=== PATIENT | female | born 1960 | race Two or more races ===

== ENCOUNTER 2016-04-20 18:50 | Observation (INO) | payer OTHER ==
[~2016-04-20] VITALS: Ht 162.6 cm; Wt 78.7 kg
--- NOTE | ~2016-04-20 | CO ---
ADMIT: 04/20/2016 RM/LOC: 618 [facility] MR#: [id number] [address] [address] [place] [address] [address] Consultation SEX: F AGE: 55 : 1960 DATE OF CONSULTATION: 04/21/2016 ATTENDING PHYSICIAN: Katie Griffiths CONSULTING PHYSICIAN: Kayla George MD HISTORY OF PRESENT ILLNESS: This is a 55-year-old, G5, P3-1-1-4, who is being admitted for right lower quadrant pain as well as midline pelvic pain and postmenopausal bleeding. The patient indicates that she has had approximately 5-day history of these symptoms. She indicates that it first started with period like vaginal bleeding and low mild midline pelvic pain. Over the last couple days, symptoms have intermittently worsened and lightened up with a couple of days of period like bleeding mixed with spotting. Pelvic pain she describes as mostly low pelvic at first and then has progressively also increased to having right lower quadrant pain as well. The right lower quadrant pain is persistent whereas the midline pelvic pain tends to be more intermittent in nature. PAST MEDICAL HISTORY: Significant for an endometrial ablation in 1997 which was preceded by a tubal ligation after the of her last child. Since that time, she indicates that she really has not had a period. However, she over the past two years, had postcoital spotting with every episode of sex. Endometrial ablation was for menorrhagia. She denies any history of abnormal Pap smears and denies any symptoms of pain like this prior. She does indicate the midline pelvic pain is worse with voiding. The right lower quadrant pain tends to be worse with activity, especially standing. In the past couple days, she denies any fevers, chills, chest pain, shortness of breath, nausea, vomiting, diarrhea, or constipation. She also indicates the pain is sometimes slightly worse with a bowel movement. SURGICAL HISTORY: She had a laparoscopic cholecystectomy in 2000, she had a right knee surgical debridement, and she has also had endometrial ablation in 1997. She had a laparoscopic tubal ligation done after the of her last child. She has also had back surgery for ruptured disk. 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 Three were at term and 1 was approximately 6 months. Her last Pap smear she reports was about 1-1/2 years ago at [facility], she reports that was normal although the records are not available for review at this time. She does report remote history of abnormal Pap smear about 10 years ago, which did not require treatment, all have been normal since. She does indicate that she has had hot flashes for approximately 1 year and she indicates that she has dyspareunia with sex every time, she feels like her partner is hitting something hard with sex which has progressively gotten worse over the last year. ALLERGIES: NO KNOWN DRUG ALLERGIES. MEDICATIONS: ADMIT: 04/20/2016 RM/LOC: 618 [facility] MR#: [id number] [address] [address] [facility] [place] [address] Consultation SEX: F AGE: 55 : 1960 1. Baby ASA daily. 2. Amitriptyline 25 mg daily. REVIEW OF SYSTEMS: Full review of systems was performed. See HPI for pertinent details. PHYSICAL EXAMINATION: VITAL SIGNS: 97.8, pulse 80, respirations 20, blood pressure is 117/69, and she is 99% on room air. GENERAL: The patient appears mildly uncomfortable in bed. HEART: Regular rate and rhythm. No murmurs, rubs, or gallops. LUNGS: Clear to auscultation bilaterally. ABDOMEN: Positive bowel sounds. Soft, she does not have any CVA tenderness noted. She does have tenderness to palpation of the right lower quadrant, however, there is no rebound or guarding. She does have some right lower quadrant pain that is exacerbated with flexion of the right hip. Heel jar test is negative bilaterally. She does not have any psoas pain with flexion of the left hip. PELVIC: Normal external genitalia. Speculum was easily placed with good visualization of the cervix which does appear to be normal in appearance, although not parous in appearance. There was a small amount of blood in the vault. There were no lesions noted. No abnormal vaginal discharge. Normal, but slightly atrophic-appearing vaginal epithelium. Bimanual exam shows a normal- sized anteverted uterus. There was no evidence of adnexal masses. No overt cervical motion tenderness noted although the patient is uncomfortable with lateralization of the cervix. She does have right adnexal tenderness on exam. No left adnexal tenderness noted. EXTREMITIES: No edema. LABORATORY DATA: Her white count is 9.4, hemoglobin 14.0, hematocrit 42, and platelets are 399. Sodium is 141, potassium 4.0, chloride is 107, CO2 of 24, BUN is 9, creatinine 0.9, and glucose is 104. UA shows 1+ blood, 3+ leuks, negative nitrites, 17 wbc's. Pelvic ultrasound shows uterus that is 3.8 x 1.5 x 4.3 cm with heterogeneous myometrium and several scattered myometrial calcifications, possibly adenomyosis versus small calcified fibroids. There was a 7 mm endometrial thickness. Ovaries are normal in size and echotexture. The right ovary is 16 x 16 x 9 mm and the left ovary is 12 x 12 x 10 mm. There are nabothian cysts that are 6 mm and adnexal regions are otherwise negative. No free fluid in the pelvis. IMPRESSION: Atrophic uterus with heterogeneous myometrium and several subcentimeter calcifications, adenomyosis versus small calcified fibroids. ASSESSMENT AND PLAN: 1. This is a 55-year-old, G5, P3-1-1-4, with pelvic pain and postmenopausal bleeding, unsure etiology of her pelvic pain. UTI versus [employer] pathology. Reviewed that there is a syndrome called post ablative tubal ligation syndrome in which patients can develop pelvic pain subsequent to those tube procedures, however, given that she is nearly 20 years out from that ADMIT: 04/20/2016 RM/LOC: 618 [facility] MR#: [id number] 2620 [facility] [address] [place] [id number] [place] [address] [place] [address] Consultation SEX: F AGE: 55 : 1960 procedure, it is less likely but still possible. Reviewed that it is hard to say if she is actually postmenopausal, but given that she has had hot flashes for greater than 1 year and the development of postcoital bleeding, I am concerned that she is probably postmenopausal and this bleeding and endometrial stripe greater than 4 mm needs to be further evaluated with an endometrial biopsy as an outpatient. I did review the history of ablation can make it a little bit more difficult to perform that procedure. Did discuss that if I would recommend at this point in time, the complete course of treatment for urinary tract infection, be seen as an outpatient for endometrial biopsy in clinic. Once those results are back and if the pain is persistent, patient may need diagnostic laparoscopy or potential bilateral salpingectomy or further evaluation or surgical management for her pain. However, given the fairly recent nature and development of her pain, would recommend starting with full evaluation first and treatment of her UTI. 2. Pap smear records have been requested. Thank you very much. Kayla George MD/ kenneth JOB #: [id number] CC: Katie Griffiths, Attending Physician Katie Griffiths, Family Physician
--- NOTE | ~2016-04-20 | OR ---
ADMIT: 04/20/2016 RM/LOC: 618 [facility] MR#: [id number] [facility]#: [id number] [address] [address] [place] [address] [address] Operative/Delivery Room Report SEX: F AGE: 55 : 1960 SURGERY DATE: 04/23/2016 SURGEON: Kayla George MD PREOPERATIVE DIAGNOSES: 1. Postmenopausal bleeding. 2. Acute severe pelvic pain. 3. History of abnormal Pap smear, status post loop electrosurgical excision procedure. 4. History of postcoital bleeding. POSTOPERATIVE DIAGNOSES: 1. Postmenopausal bleeding. 2. Acute severe pelvic pain. 3. History of abnormal Pap smear, status post loop electrosurgical excision procedure. 4. History of postcoital bleeding. PROCEDURE: Endometrial biopsy. ESTIMATED BLOOD LOSS: Minimal, less than 5 mL. INDICATIONS FOR PROCEDURE: This is a 55-year-old female, who was admitted with acute severe pelvic pain and postmenopausal bleeding on the 20 of April. She does have a history of endometrial ablation in 1996 for menorrhagia and had not had any bleeding until about 2 years ago, where she developed intermittent postcoital bleeding. Over the past 5 days, the patient has developed period-like bleeding that has been intermittently heavy. She also has a past medical history significant for an abnormal Pap smear and LEEP in 2004. She reports normal Pap smears since that time, but records were not all available for review. PROCEDURE IN DETAIL: Procedure was performed in triage room in Labor and delivery. The risks, benefits, and alternatives were discussed and documented in her chart. The patient did sign a consent. In lithotomy position, bimanual exam was performed and uterus was small size, anteverted position. No cervical motion tenderness noted. The patient does have tenderness over the entire pelvis. Speculum placed with good visualization of the cervix. Pap smear collected, and gonorrhea and chlamydia cultures were collected. ADMIT: 04/20/2016 RM/LOC: 618 [facility] MR#: [id number] 2620 [facility] [address] [place], [place] [address] [address] [address] Operative/Delivery Room Report SEX: F AGE: 55 : 1960 Cervix was then cleansed with Betadine. Single-tooth tenaculum was placed on the anterior lip of the cervix, and Pipelle was attempted to be advanced through the cervix. However, due to cervical stenosis and scarring from her previous LEEP, this was not able to be performed. Os Finder/dilator was then used to gently dilate the cervix as to be able to accommodate the Pipelle. Pipelle was then able to be passed. Uterus sounded to 6 cm. Suction was deployed and sample was collected. This was repeated x1 to attempt to get adequate tissue sampling. Tenaculum was removed from the anterior lip of the cervix and a small amount of bleeding was noted from the tenaculum site. This was cauterized with silver nitrate to achieve hemostasis. The patient tolerated the procedure well. She was stable and taken back to her hospital room. Kayla George MD/ kenneth JOB #: [id number] CC: Katie Griffiths, Attending Physician Katie Griffiths, Family Physician
--- NOTE | 2016-04-21 21:42 | ER ---
ADMIT: 04/20/2016 RM/LOC: 618 [facility] MR#: [id number] [address] [facility] [address] [place] [phone] [place] [address] [address] Emergency Room Report SEX: F AGE: 55 : 1960 DATE: 04/20/2016 A 55-year-old female, who started vaginal bleeding approximately 2-3 days ago with severe cramping, suprapubic and right-sided abdominal pain, pelvic pain associated with. The pain became so intense tonight that she sought medical attention. She said the bleeding stopped earlier today. PAST MEDICAL HISTORY: That of an endometrial ablation several years ago. She has not had a period since. She has had 4 vaginal deliveries. PHYSICAL EXAMINATION: GENERAL: Reveals a 55-year-old female, in a moderate amount of distress, complaining of suprapubic pain. LUNGS: Clear to auscultation. CARDIOVASCULAR: Regular rate and rhythm without murmurs, rubs, or gallops. ABDOMEN: Soft. There was tenderness in the suprapubic region. RIB CUTTER: Without focal findings. LABORATORY DATA: Lab work was significant for a white count of 9.4. Remainder of the CBC was normal. BMP was normal. UA was significant for 17 wbc's, leukocyte esterase 3+. IMAGING: Ultrasound of the pelvis revealed adenomyosis. She is subsequently being admitted for pain control and treatment of a UTI. The patient did not feel that she was comfortable going home with pain. She had been given morphine x2, and Toradol with Pyridium without any pain relief. Deandre Best MD/ kenneth JOB #: [id number] CC: Katie Griffiths MD, Attending Physician Katie Griffiths MD, Family Physician
--- NOTE | 2016-04-24 08:40 | HP ---
ADMIT: 04/20/2016 RM/LOC: 618 [facility] MR#: [id number] [facility]#: [id number] 2620 [facility] [address] [place] [id number] ARACELI [place] [address] [place] [address] History and Physical SEX: F AGE: 55 : 1960 DATE OF SERVICE: CHIEF COMPLAINT: Abdominal pain and vaginal bleeding. HISTORY OF PRESENT ILLNESS: Araceli is a 55-year-old female, who presents with a 5-day history of intermittent vaginal bleeding and progressive right lower quadrant and pelvic abdominal pain. She previously got her care through [facility], Alisha Borden APRN. However, she has been in transition in seeking other primary care; therefore, was admitted as a city call patient today. She said on Thursday, she woke up with some right lower quadrant pain and dysuria. She thought she was just getting a UTI, so increased her water intake. Then, she said later that day, she felt "something shift" in her pelvis. She then began to have vaginal bleeding. This subsided after about one day. She then just had some spotting. Then, symptoms again returned a few days later. She has described some nausea and vomiting with this. No fevers or chills. Mild lower back ache but no CVA pain. No diarrhea or constipation. No known trauma. PAST MEDICAL HISTORY: Insomnia. MEDICATIONS: 1. Amitriptyline 25 mg at bedtime. 2. Aspirin 81 mg daily. ALLERGIES: TO VITAMIN K INJECTIONS. SOCIAL HISTORY: The patient lives at home with her and 3 foster children. FAMILY HISTORY: Unknown. REVIEW OF SYSTEMS: As per HPI. Otherwise, reviewed and negative. PHYSICAL EXAMINATION: VITAL SIGNS: Temperature 97.9, heart rate 84, respiratory rate 18, blood pressure 100/64, oxygen saturation 97% on room air. GENERAL: The patient is awake, alert, no acute distress. HEENT: Within normal limits. HEART: Regular rate and rhythm. No murmurs. LUNGS: Clear to auscultation bilaterally. No crackles or wheezes. ABDOMEN: Soft and nondistended. She is mildly tender in the abdomen in the suprapubic and right lower quadrant. No guarding. No rebound tenderness. Normal bowel sounds. EXTREMITIES: Warm and dry. No edema. NEUROLOGIC: Cranial nerves II through XII grossly intact. No focal neurologic deficit appreciated. PSYCHIATRIC: Normal mood and affect. LABORATORY DATA: Please see electronic record for full details. Of note, her white blood cell count was normal at 9.4. Creatinine was normal at 0.9. ADMIT: 04/20/2016 RM/LOC: 618 [facility] MR#: [id number] [address] [address] [place] [address] History and Physical SEX: F AGE: 55 : 1960 Electrolytes are within normal limits. Urinalysis was positive for 1+ blood, 3+ leukocyte esterase, 17 white blood cells, 7 red blood cells, and rare mucus. Urine culture is pending. Pelvic ultrasound and abdominal CT scan were performed and reviewed. ASSESSMENT AND PLAN: 1. Pelvic pain. OB-MEDICAL REPRESENTATIVE has been consulted and appreciate their recommendations. Question whether this is related to UTI versus gynecologic pathology. 2. Urinary tract infection. Culture is currently pending. We have started her on oral Cipro. We will use Pyridium for pain control as well as Tylenol and Motrin. We will also have morphine p.r.n., but we will try to limit this as well. 3. Postmenopausal bleeding. Appreciate MEDICAL REPRESENTATIVE recommendations regarding this. Currently, this has resolved, so we will continue to monitor closely. No sign of anemia at this time. DISPOSITION: We will work through transitioning her to oral pain management as well as oral antibiotics. Once she is stable with these oral medications, we will plan for discharge with outpatient MEDICAL REPRESENTATIVE followup. I will also obtain records from [facility] to further evaluate her medical history. Katie Griffiths MD/ kenneth JOB #: [id number] CC: Katie Griffiths, Attending Physician Katie Griffiths, Family Physician
[2016-04-25] MEDS ORDERED: PROTONIX40 MG PO (18:15)
[2016-04-25] MEDS ORDERED: ELAVIL-DPS50 MG PO (18:15)
[2016-04-25] MEDS ORDERED: CIPRO DPS500 MG PO (18:15)
[2016-04-25] MEDS ORDERED: COLACE-DPS100 MG PO (18:15)
[2016-04-25] MEDS ORDERED: ASA CHILDREN'S81 MG PO (18:15)
[2016-04-25] MEDS ORDERED: MIRALAX DPS17 GM PO (18:16)
[2016-04-25] MEDS ORDERED: HYDROCODONE 5MG/5 MG PO (18:16)
[2016-04-25] MEDS ORDERED: TYLENOL DPS325 MG PO (18:16)
[2016-04-25] MEDS ORDERED: MOTRIN-DPS800 MG PO (18:16)
[2016-04-25] MEDS ORDERED: ULTRAM DPS50 MG PO (18:17)
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
== END 2016-04-24 12:20 | disposition home or self-care (01) ==
LOC: ER 18:50 → 6PED 23:55
PROVIDERS: ADMIT Family Medicine
PROC: 0UDB7ZX Extraction of Endometrium, Via Natural or Artificial Opening, Diagnostic (ICD-10-PCS; principal; 2016-04-23)
DX: N39.0 Urinary tract infection, site not specified (principal); B96.20 Unspecified Escherichia coli [E. coli] as the cause of diseases classified elsewhere; N95.0 Postmenopausal bleeding; R10.2 Pelvic and perineal pain; F32.9 Major depressive disorder, single episode, unspecified; Z23 Encounter for immunization; G47.00 Insomnia, unspecified; Z79.82 Long term (current) use of aspirin; Z88.8 Allergy status to other drugs, medicaments and biological substances; Z90.49 Acquired absence of other specified parts of digestive tract; Z98.51 Tubal ligation status; Z98.890 Other specified postprocedural states